=== PATIENT | male | born 1960 | race Two or more races ===

== ENCOUNTER 2022-03-26 18:52 | Inpatient (IN) | payer MEDICAID ==
[~2022-03-26] VITALS: Ht 167.6 cm; Wt 63.5 kg
--- NOTE | 2022-03-26 18:55 | NUR ---
BIBFAMILY MEMBER FOR RIGHT LOWER LEG & RIGHT ARM PAIN 5/10. THE PATIENT IS NOTED WITH NIGHT SIDED WEAKNESS WITH RIGHT SIDED FACIAL DROOP. PT ATTACHED TO MONITOR. DR SANDERSON AT BEDSIDE.
--- NOTE | 2022-03-26 19:14 | NUR ---
IV ESTABLISHED L AC 20G. LABS DRAWN AND SENT.
--- NOTE | 2022-03-26 19:18 | NUR ---
PT TAKEN TO CT WITH ACLS PROTOCOL IN PLACE
--- NOTE | 2022-03-26 19:18 | NUR ---
CODE STROKE ACTIVATED
--- NOTE | 2022-03-26 19:19 | NUR ---
PT TAKEN TO CT VIA [facility] ACLS PROTOCOL
--- NOTE | 2022-03-26 19:20 | NUR ---
SENT TELE REQUEST
[2022-03-26] MEDS ORDERED: IOHEXOL-350 100 ML VIAL IV ONE (19:21)
--- NOTE | 2022-03-26 19:37 | NUR ---
DR SANDERSON ON PHONE WITH RADIOLOGIST DR ESPINOSA
--- NOTE | 2022-03-26 19:37 | NUR ---
PT RETURNED TO ER BED [address]
--- NOTE | 2022-03-26 19:37 | NUR ---
PT RETURNED FROM CT
--- NOTE | 2022-03-26 19:38 | NUR ---
COVID SWAB COLLECTED AND SENT TO LAB
[2022-03-26 19:45] LABS: BASOPHILS # (AUTO) 0.1 K/uL (0.0-0.2); BASOPHILS % (AUTO) 0.6 % (0.0-2.0); EOSINOPHILS % (AUTO) 0.6 % (0.0-6.0); HEMATOCRIT 48 % (39-51); HEMOGLOBIN 16.3 g/dL (13.5-17.5); LYMPHOCYTES # (AUTO) 1.8 K/uL (0.8-4.8); LYMPHOCYTES % (AUTO) 19.7 % (20.0-44.0); MEAN CORPUSCULAR HGB CONC 34 g/dl (31.0-36.0); MEAN CORPUSCULAR VOLUME 97 fL (80-96); MONOCYTES % (AUTO) 10.4 % (2.0-12.0); NEUTROPHILS # (AUTO) 6.3 K/uL (1.8-8.9); NEUTROPHILS % (AUTO) 68.7 % (43.0-81.0); PLATELET COUNT (AUTO) 269 K/uL (150-450); RED BLOOD CELL COUNT(AUTO) 4.94 MIL/uL (4.5-6.0); WHITE BLOOD COUNT (AUTO) 9.2 K/uL (4.3-11.0)
--- NOTE | 2022-03-26 19:47 | NUR ---
MRSA SWAB COLLECTED AND SENT TO LAB. PATIENT'S BELONGINGS LIST DONE.
--- NOTE | 2022-03-26 20:06 | NUR ---
DR NAVARRO NEUROLOGIST ON TELENEURO MACHINE FOR ASSESSMENT OF PATIENT. RN AT BEDSIDE.
--- NOTE | 2022-03-26 20:13 | NUR ---
DR SANDERSON ON THE PHONE W DR WILLIAM NAVARRO NEUROLOGY
[2022-03-26 20:16] LABS: ALANINE AMINOTRANSFERASE 55 U/L (12-78); ALBUMIN 4.2 g/dL (3.4-5.0); ALKALINE PHOSPHATASE 76 U/L (46-116); ASPARTATE AMINOTRANSFERASE 40 U/L (15-37); BILIRUBIN,DIRECT 0.1 mg/dL (0.0-0.2); BILIRUBIN,TOTAL 0.5 mg/dL (0.2-1.0); CALCIUM, SERUM 9.1 mg/dL (8.5-10.1); CARBON DIOXIDE 32 mmol/L (21-32); GLUCOSE 174 mg/dL (74-106); TOTAL PROTEIN, SERUM 8.4 g/dL (6.4-8.2); UREA NITROGEN, BLOOD 21 mg/dL (7-18)
--- NOTE | 2022-03-26 20:34 | NUR ---
TROP Mir SANDERS MADE AWARE
[2022-03-26 20:47] LABS: CHLORIDE 103 mmol/L (98-107); POTASSIUM 3.8 mmol/L (3.5-5.1); SODIUM SERUM 140 mmol/L (136-145)
[2022-03-26] MEDS ORDERED: ENOXAPARIN SODIUM 60 MG/0.6 ML DISP.SYRIN SQ ONE ×2 (21:00→21:03)
--- NOTE | 2022-03-26 21:21 | NUR ---
research quality assurance specialist at bedside
[2022-03-26] MEDS ORDERED: ZOLPIDEM TARTRATE 5 MG TABLET PO PRN (21:30)
[2022-03-26] MEDS ORDERED: ONDANSETRON HCL/PF 4 MG/2 ML VIAL IVP PRN (21:30)
[2022-03-26] MEDS ORDERED: ACETAMINOPHEN 325 MG TABLET PO PRN (21:30)
[2022-03-26] MEDS: BLOOD SUGAR DIAGNOSTIC 1 EACH STRIP IN SCH (22:00)
[2022-03-26 22:45] LABS: BILIRUBIN,TOTAL 0.5 mg/dL (0.2-1.0); THYROID STIMULATING HORMONE 6.295 uIU/mL (0.358-3.74); TOTAL PROTEIN, SERUM 8.2 g/dL (6.4-8.2)
[2022-03-26 23:01] LABS: POTASSIUM 3.7 mmol/L (3.5-5.1)
--- NOTE | 2022-03-27 01:02 | NUR ---
PHLEBOTMIST AT BEDSIDE
--- NOTE | 2022-03-27 02:32 | NUR ---
TROPONIN 189
[2022-03-27 03:20] LABS: BASOPHILS # (AUTO) 0.1 K/uL (0.0-0.2); BASOPHILS % (AUTO) 1.1 % (0.0-2.0); EOSINOPHILS % (AUTO) 0.7 % (0.0-6.0); HEMATOCRIT 48 % (39-51); HEMOGLOBIN 16.2 g/dL (13.5-17.5); LYMPHOCYTES # (AUTO) 2.2 K/uL (0.8-4.8); LYMPHOCYTES % (AUTO) 22.8 % (20.0-44.0); MEAN CORPUSCULAR HGB CONC 34 g/dl (31.0-36.0); MEAN CORPUSCULAR VOLUME 98 fL (80-96); MONOCYTES # (AUTO) 0.9 K/uL (0.1-1.30); MONOCYTES % (AUTO) 9.2 % (2.0-12.0); NEUTROPHILS # (AUTO) 6.3 K/uL (1.8-8.9); NEUTROPHILS % (AUTO) 66.2 % (43.0-81.0); PLATELET COUNT (AUTO) 243 K/uL (150-450); RED BLOOD CELL COUNT(AUTO) 4.85 MIL/uL (4.5-6.0); WHITE BLOOD COUNT (AUTO) 9.6 K/uL (4.3-11.0)
[2022-03-27 03:38] LABS: CALCIUM, SERUM 8.9 mg/dL (8.5-10.1); CREATININE 1.1 mg/dL (0.6-1.3); MAGNESIUM 2.3 mg/dL (1.8-2.4); PHOSPHORUS 4.4 mg/dL (2.5-4.9)
--- NOTE | 2022-03-27 03:49 | NUR ---
PT SLEEPING COMOFORTABLY BREATHING EVEN AND UNLABORED. REMAINS ON MONITOR AND V/S WNL. CALL LIGHT WITHIN REACH.
--- NOTE | 2022-03-27 03:58 | NUR ---
TROPONIN 184
[2022-03-27 04:11] LABS: POTASSIUM 3.8 mmol/L (3.5-5.1)
--- NOTE | 2022-03-27 05:50 | NUR ---
jovany crenshaw, hospitalist at the bed side
--- NOTE | 2022-03-27 06:23 | NUR ---
REPOLRT GIVEN TO DENIS
--- NOTE | 2022-03-27 06:39 | NUR ---
PT TRANSPORTED TOO ROOM 304 ON CARDIAC PER ACLS PROTOCOL
[2022-03-27 06:40] VITALS: BP 129/78
--- NOTE | 2022-03-27 07:30 | NUR ---
INFORMATION LEAD OPENING NOTES PATIENT RECEIVED ON BED AWAKE , VERBALLY RESPONSIVE , A/O X 4 AND ABLE TO MAKE NEEDS KNOWN , ROOM AIR , BS WAS CHECKED WITH RESULT OF 286 , V/S WAS TAKEN , NO SOB OR DISTRESS NOTED , BED IN LOWEST POSITION , SAFETY PRECAUTIONS PROVIDED WILL CONTINUE TO MONITOR Addendum: 03/27/22 at 0943 by LAVERN MOLINA RN ADD: PATIENT ON COLLISION CENTER MANAGER AND READING IS SINUS HAYES WITH HR OF 58
[2022-03-27 08:00] VITALS: BP 136/79
[2022-03-27] MEDS ORDERED: DEXTROSE 50%-WATER 50 ML DISP.SYRIN IV PRN (08:00)
[2022-03-27] MEDS ORDERED: METF-440 PO (08:03)
[2022-03-27] MEDS: BLOOD SUGAR DIAGNOSTIC 1 EACH STRIP IN SCH ×6 (08:05→21:31)
[2022-03-27] MEDS: ASPIRIN EC 81 MG TABLET.DR PO SCH ×2 (08:29→09:00)
[2022-03-27] MEDS: CLOPIDOGREL BISULFATE 75 MG TABLET PO SCH (08:33)
[2022-03-27] MEDS: METFORMIN 500 MG TABLET PO SCH ×2 (08:33→17:55)
[2022-03-27] MEDS: PANTOPRAZOLE 40 MG VIAL IV SCH (08:34)
--- NOTE | 2022-03-27 10:08 | NUR ---
RN NOTES ASPIRIN 0900 WAS NOT ADMINISTERED DUE TO DUP;LICATE AND VERIFIED WITH PHARMACY
[2022-03-27] MEDS: IV NS 0.9% 1,000 ML IV PRN (11:31)
--- NOTE | 2022-03-27 13:30 | NUR ---
RN NOTE Patient brought to radiology for MRI.
--- NOTE | 2022-03-27 13:41 | NUR ---
SW met with pt. at bedside. However, pt. was being taken to get MRI done. SW will follow up at a later time.
--- NOTE | 2022-03-27 14:00 | NUR ---
RN LINN Barrios from radiology called states that patient is not cooperating and starts becoming uneasy and agitated during MRI. Notified Dr. Laura Dr ordered Ativan 1 mg IV once, to give prior to MRI.
[2022-03-27] MEDS ORDERED: LORAZEPAM INJ 2 MG/ML VIAL IV PRN (15:00)
[2022-03-27 16:00] VITALS: BP 129/74
--- NOTE | 2022-03-27 16:45 | NUR ---
RN NOTES PATIENT WAS GIVEN WITH ATIVAN INJ 1 MG IV PRIOR TO MRI ORDERED
--- NOTE | 2022-03-27 17:46 | NUR ---
RN NOTES BLOOD SUGAR CHECK FOR 1700 NOT TAKEN , PATIENT WENT TO MRI
[2022-03-27] MEDS: INSULIN REGULAR, HUMAN 100 UNIT/ML 3 ML VIAL SQ PRN (18:04)
--- NOTE | 2022-03-27 18:47 | NUR ---
MOSS GATHERER CLOSING NOTES PATIENT IS AWAKE , VERBALLY RESPONSIVE , A/0X3 WITH FORGETFULNESS , TELE PT AND ON FLIGHT ENGINEER MANAGER WITH READING OF SR AND HR 58 , NO SOB OR DISTRESS NOTED , RIGHT SIDED WEAKNESS NOTED , DUE MEDS GIVEN ORDERED , ACCUCHECK DONE AND INSULIN GIVEN PER SCALE , LAC #18G PATENT AND WITH NS @75CC/HR , MRI DONE FOR THE BRAIN AND C SPINE SEEN BY REHAB - PT AND ABLE TO AMBULATE WITH WALKER LIKE 20 FEET , FALL RISK AND SAFETY PRECAUTIONS PROVIDED , BED IN LOWEST POSITION AND BOTH SIDE RAILS UP , AROUND 1830 C/O OF MILD PAIN ON LOWER LEG AND TYLENOL GIVEN , ENDORSED TO NEXT SHIFT
--- NOTE | 2022-03-27 19:00 | NUR ---
received in bed family with patient noted french speak noted right are weakness right hand with weak fire pot operator moved table with his belongings and water to the left side of the bed d/t that is the arm that he can left and hold in that position and has a strong fire pot operator urinal in place for easy reach bed alarm on
[2022-03-27 20:00] VITALS: BP 125/77
[2022-03-27] MEDS: ATORVASTATIN 40 MG TABLET PO SCH (21:32)
[2022-03-28] VITALS: BP 143/91
[2022-03-28 04:00] VITALS: BP_SYST 111; BP_SYST 122; BP_DIAS 53; BP_DIAS 56
--- NOTE | 2022-03-28 04:52 | NUR ---
CLOSING NOTES: ALERT AND ORIENTATED X2 AT TIMES HE HAS A SLOW REPONSE TO ANSWER A QUESTION HE SPEAKS OCCITAN AND SOME ROMANIAN NIHSS SCALE SCORE 9 NOTED RIGHT LEG FLACCID RIGHT ARM LIMITED UNABLE TO LIFT AND HOLD BUT HE MOVES HIS FINGERS AND HAVS A WEAK [employer] (UNABLE TO HOLD A CUP) HE KNOW HIS NAME UNABLE TO READ THE PICTURES ON THE STROKE CARD HE JUST STARED AT THE PHOTO HE TURNS HIMSELF IN THE BED THROUGHTOUT THE NIGHT
[2022-03-28] MEDS: BLOOD SUGAR DIAGNOSTIC 1 EACH STRIP IN SCH ×4 (06:00→21:36)
[2022-03-28] MEDS: INSULIN REGULAR, HUMAN 100 UNIT/ML 3 ML VIAL SQ PRN ×2 (06:11→21:37)
--- NOTE | 2022-03-28 07:07 | NUR ---
unable to void ambulated to the bathroom still unable to void back to bed with assist 2 nurses text Charmaine informed her unable to void and the bladder scan shows 277 ml urine pt in no ditress states he doesns't have to "pee" Charmaine text back endorse to day shift will do
--- NOTE | 2022-03-28 07:54 | NUR ---
NURSE LDR OPENING NOTES RECEIVED PATIENT IN BED, AWAKE, A/O X3. PATIENT ON ROOM AIR; BREATHING EVEN AND UNLABORED; NO SOB OR ANY S/S OF RESPIRATORY DISTRESS. NO COMPLAINS OF PAIN AT THIS TIME. TELE MONITOR WITH CURRENT READING OF SB 55. PATIENT WITH R SIDED WEAKNESS IN BOTH, ARM AND LEG. IV ACCESS IN LAC G # 18 RUNNING NS @ 75 MLS/HR. SAFETY PRECAUTIONS IN PLACE; BED IN LOW POSITION AND LOCKED, RAILS UP X2, CALL LIGHT WITHIN REACH. WILL CONTINUE TO MONITOR PATIENT.
[2022-03-28 08:00] VITALS: BP 125/75
[2022-03-28] MEDS: CLOPIDOGREL BISULFATE 75 MG TABLET PO SCH (08:15)
[2022-03-28] MEDS: METFORMIN 500 MG TABLET PO SCH ×2 (08:15→16:25)
[2022-03-28] MEDS: ASPIRIN EC 81 MG TABLET.DR PO SCH (08:15)
[2022-03-28] MEDS: PANTOPRAZOLE 40 MG VIAL IV SCH (08:15)
[2022-03-28] MEDS: IV NS 0.9% 1,000 ML IV PRN (09:43)
--- NOTE | 2022-03-28 09:54 | NUR ---
ENGINEER STEAM NOTES PATIENT VOIDED IN THE URINAL
--- NOTE | 2022-03-28 11:02 | NUR ---
SS Consult: SS Consult requested for code stroke. The pt. is a 61-year-old male who was admitted for right-sided weakness. SW met with pt. at bedside. The pt.s sister, Brisa Pineda [phone]. The pt. was alert & oriented x 3 and makes poor eye contact. The pt. appears well-groomed. Pt. denies SI/HI and denies hallucinations. The pt. has depressed mood and flat affect. Pt. stated that he alone at home [[id number] [facility] [address]; [phone]]. Per pt. he was independent with his ADLs prior to admission. SW provided empowerment after stroke educational material and pt. accepted it. Pt. denies drug abuse and denies alcohol use. Pt. denies history of mental health illness. Pt. stated his support system also includes his mother, Carrol Pineda [phone]. Pt. denies having trouble with memory however, pt. could not recall his phone number, the year and other information. Patients sister, Brisa states the pt. has 2 teenage children. Plan: Pt. initially stated she would like to return home [[address] [facility] [address]; [phone]]. However, Dr. De La Rosa spoke to pt. and recommended ARU and pt. nodded in agreement. Case management will speak to pt. and his sister about placement. SW encouraged pt. to go to ARU for physical therapy. SW provided stroke empowerment resources. Pt. accepted them. Pt. scored an 18 on the post stroke depression scale. SW will notify patients nurse that pt. requires Psych Consult.
[2022-03-28] MEDS ORDERED: ATOR40TA PO (11:37)
[2022-03-28] MEDS ORDERED: PANT40TA49 PO (11:37)
[2022-03-28] MEDS ORDERED: CLOP75TA15 PO (11:37)
[2022-03-28] MEDS ORDERED: Aspirin Ec PO (11:37)
--- NOTE | 2022-03-28 18:51 | NUR ---
FOOD MIXER REPAIRER CLOSING NOTES PATIENT REMAINS IN BED, AWAKE, A/O X3. PATIENT ON ROOM AIR; BREATHING EVEN AND UNLABORED; NO SOB OR ANY S/S OF RESPIRATORY DISTRESS DURING THE DAY. NO COMPLAINS OF PAIN. TELE MONITOR WITH CURRENT READING OF SR 64. PATIENT WITH R SIDED WEAKNESS IN BOTH, ARM AND LEG. IV ACCESS IN LAC G # 18 RUNNING NS @ 75 MLS/HR. ALL NEEDS ATTENDED DURING THE DAY. SAFETY PRECAUTIONS IN PLACE; BED IN LOW POSITION AND LOCKED, RAILS UP X2, CALL LIGHT WITHIN REACH. WILL ENDORSE TO ASTRONOMY DEPARTMENT CHAIR NURSE FOR FERMIN.
--- NOTE | 2022-03-28 19:30 | NUR ---
RN OPENING NOTES RECEIVED PT IN BED, AWAKE. AOx3, ABLE TO MAKE NEEDS KNOWN. ON RA AND TOLERATING WELL. NO SOB NOTED. NO S/SX OF RESPIRATORY DISTRESS NOTED. TELE MONITOR DETECTS SR. IV ACCESS IN LAC #18G RUNNING NS @ 75 ML/HR. SAFETY PRECAUTIONS IN PLACE: BED IN LOWEST, LOCKED POSITION, SIDERAILS UPx2, AND BRAKES ON. TABLE AND CALL LIGHT WITHIN REACH. WILL CONTINUE TO MONITOR.
[2022-03-28 20:00] VITALS: BP 129/67
[2022-03-28] MEDS: ATORVASTATIN 40 MG TABLET PO SCH (21:29)
[2022-03-29] VITALS: BP 132/71
[2022-03-29 04:00] VITALS: BP 116/64
[2022-03-29] MEDS: IV NS 0.9% 1,000 ML IV PRN (06:16)
[2022-03-29] MEDS: BLOOD SUGAR DIAGNOSTIC 1 EACH STRIP IN SCH ×3 (06:34→17:02)
[2022-03-29] MEDS: INSULIN REGULAR, HUMAN 100 UNIT/ML 3 ML VIAL SQ PRN (06:34)
--- NOTE | 2022-03-29 06:45 | NUR ---
RN CLOSING NOTES PT IN BED, AWAKE. AOx3, ABLE TO MAKE NEEDS KNOWN. ON RA AND TOLERATING WELL. NO SOB NOTED. NO S/SX OF RESPIRATORY DISTRESS NOTED. TELE MONITOR DETECTS SINUS RHYTHM AND SINUS BRADYCARDIA. IV ACCESS IN LAC #18G RUNNING NS @ 75 ML/HR. ALL ORDERS CARRIED OUT. ALL NEEDS MET. PT KEPT CLEAN AND DRY. SAFETY PRECAUTIONS IN PLACE: BED IN LOWEST, LOCKED POSITION, SIDERAILS UPx2, AND BRAKES ON. TABLE AND CALL LIGHT WITHIN REACH. WILL ENDORSE TO ONCOMING SHIFT FOR FERMIN.
--- NOTE | 2022-03-29 07:19 | NUR ---
RADIO FREQUENCY TECHNICIAN OPENING NOTES RECEIVED PATIENT IN BED, AWAKE, A/O X3. PATIENT ON ROOM AIR; BREATHING EVEN AND UNLABORED; NO SOB OR ANY S/S OF RESPIRATORY DISTRESS. NO COMPLAINS OF PAIN AT THIS TIME. TELE MONITOR WITH CURRENT READING OF SB 52. PATIENT WITH R SIDED WEAKNESS IN BOTH, ARM AND LEG. IV ACCESS IN LAC G # 18 RUNNING NS @ 75 MLS/HR. SAFETY PRECAUTIONS IN PLACE; BED IN LOW POSITION AND LOCKED, RAILS UP X2, CALL LIGHT WITHIN REACH. WILL CONTINUE TO MONITOR PATIENT.
[2022-03-29] MEDS ORDERED: PANTOPRAZOLE 40 MG TABLET.DR PO SCH (07:30)
[2022-03-29] MEDS: CLOPIDOGREL BISULFATE 75 MG TABLET PO SCH (08:17)
[2022-03-29] MEDS: METFORMIN 500 MG TABLET PO SCH ×2 (08:17→17:13)
[2022-03-29] MEDS: ASPIRIN EC 81 MG TABLET.DR PO SCH (08:17)
--- NOTE | 2022-03-29 16:12 | NUR ---
BLAST FURNACE HELPER NOTES Patient tried to use the walker himself to get to the restroom. He has been asked multiple times to call for help in case he needs to ambulate or has any other needs where assistance is required. Patient verbalized understanding every single time. Safety precautions were in place; call light next to patient, rails up x2. Patient fell on his bottom. Patient states he did not hit anything and nothing is hurting. No injury. Vital Signs within normal limits. No bruise or skin tear, scratch. Patient states he feels fine. When asked why he did not call for help, patient states he forgot and he wanted to see if he can do it himself. Charge nurse made aware. Charge nurse went to see the patient is well. Patient is now resting in bed comfortably. Md notified. Family made aware.
--- NOTE | 2022-03-29 17:49 | NUR ---
FLIGHT LINE SERVICE ATTENDANTSTICK WELDER NOTES PATIENT DISCHARGED TO SNF. PATIENT A/O X3 ABLE TO MAKE NEEDS KNOWN. ALL DISCHARGE PAPERWORK READY AND PHYSICIAN INSTRUCTIONS PROVIDED TO PATIENT. PATIENT AND FAMILY VERBALIZED UNDERSTANDING AND PAPERWORK SIGNED. BELONGINGS ACCOUNTED FOR AND FORM SIGNED WELL. IV ACCESS REMOVED. ID BEND REMOVED. FACILITY CALLED AND REPORT GIVEN TO CM. PATIENT PICKED UP AND LEFT THE UNIT VIA GURNEY ACCOMPANIED BY 2 regulatory compliance director AND FAMILY
== END 2022-03-29 18:00 | DRG 45 ==
LOC: ER 19:03 → TELE 03-27 04:42
PROVIDERS: ADMIT Nurse Practitioner Acute Care; ATTEND Internal Medicine
DX: I63.322 Cerebral infarction due to thrombosis of left anterior cerebral artery (principal); I21.4 Non-ST elevation (NSTEMI) myocardial infarction; G81.91 Hemiplegia, unspecified affecting right dominant side; I63.9 Cerebral infarction, unspecified; Z86.73 Personal history of transient ischemic attack (TIA), and cerebral infarction without residual deficits; E11.65 Type 2 diabetes mellitus with hyperglycemia; Z20.822 Contact with and (suspected) exposure to COVID-19; I65.23 Occlusion and stenosis of bilateral carotid arteries; Z96.698 Presence of other orthopedic joint implants; Z96.641 Presence of right artificial hip joint; Z79.899 Other long term (current) drug therapy; G31.9 Degenerative disease of nervous system, unspecified; R29.706 NIHSS score 6
CPT/HCPCS: 36415; 70450-TC; 70496-TC; 70498-TC; 70551-TC; 71045-TC; 72141-TC; 73564-TC; 73590-TC; 80048-TC; 80053-TC; 80061-TC; 80076-TC; 82962-TC; 83735-TC; 83880; 84100-TC; 84443-TC; 84484-TC; 85025-TC; 85652-TC; 85730-TC; 87081-TC; 92526; 92611-TC; 93307-TC; 97110-TC; 97116-TC; 97530-TC; 97535-TC; C9113; C9803; G0378; J1650; J1815; J2060; J7030; Q9967